=== PATIENT | female | born 1995 | race Caucasian/White ===

== ENCOUNTER 2022-02-25 08:13 | Emergency (ER) | payer MEDICAID, OTHER ==
[~2022-02-25] VITALS: Ht 165.1 cm; Wt 118.0 kg
[2022-02-25 08:32] VITALS: BP 135/77
[2022-02-25] MEDS ORDERED: ACETAMINOPHEN 500MG TABLET PO ONE (10:15)
[2022-02-25 10:50] LABS: CLARITY URINE CLEAR (CLEAR); COLOR URINE YELLOW (YELLOW); KETONES URINE NEGATIVE (NEGATIVE); LEUKOCYTE ESTERASE URINE NEGATIVE (NEGATIVE); NITRITE URINE NEGATIVE (NEGATIVE); OCCULT BLOOD URINE NEGATIVE (NEGATIVE); PROTEIN URINE NEGATIVE (NEGATIVE); SPECIFIC GRAVITY URINE 1.018 (1.005-1.030); UROBILINOGEN URINE 0.2 E.U./dL (0.2-1.0)
[2022-02-25] MEDS ORDERED: IBUP-2029 MT (10:54)
== END 2022-02-25 11:24 | disposition home or self-care (01) ==
LOC: ER 08:13
DX: R10.30 Lower abdominal pain, unspecified (principal); E11.9 Type 2 diabetes mellitus without complications; I10 Essential (primary) hypertension
CPT/HCPCS: 81003; 81025; 82962; 99283